=== PATIENT | male | born 1995 | race Caucasian/White ===

== ENCOUNTER 2021-12-12 23:22 | Emergency (ER) | payer SELFPAY ==
[2021-12-13] MEDS ORDERED: Ondansetron 4 MG Tab.DIS ONE (00:10)
[2021-12-13] MEDS ORDERED: Pantoprazole 40 MG Tab.CR ONE (00:10)
[2022-01-07 13:34] LABS: ESTIMATED GFR 119 mL/min (>60)
== END 2021-12-13 03:43 | disposition home or self-care (01) ==
LOC: JP.ED 23:22
DX: K92.0 Hematemesis (principal); R10.9 Unspecified abdominal pain; R45.851 Suicidal ideations; F91.1 Conduct disorder, childhood-onset type; F10.129 Alcohol abuse with intoxication, unspecified
CPT/HCPCS: 36415; 80053; 80143; 80179; 80307; 82271; 83690; 84443; 85027; 85610; 85730; 99284; A9270; Q0162

== ENCOUNTER 2022-08-21 09:52 | Emergency (ER) | payer MEDICAID ==
[2022-08-21] MEDS ORDERED: HYDROmorphone 1 MG/ML Syringe IM ONE (12:08)
[2022-08-21] MEDS ORDERED: Naloxone 0.4 MG/ML SDV IVPUSH PRN (12:08)
[2022-08-21] MEDS ORDERED: Cyclobenzaprine 10 MG Tab PO ONE (13:14)
[2022-08-21] MEDS ORDERED: Sodium Chloride 0.9% 10 ML Syringe FLUSH PRN (13:41)
[2022-08-21] MEDS ORDERED: HYDROmorphone 1 MG/ML Syringe IVPUSH ONE (14:12)
== END 2022-08-21 15:53 | disposition home or self-care (01) ==
LOC: JP.ED 09:52
DX: S32.392A Other fracture of left ilium, initial encounter for closed fracture (principal); Z91.030 Bee allergy status; Z91.018 Allergy to other foods; W23.1XXA Caught, crushed, jammed, or pinched between stationary objects, initial encounter
CPT/HCPCS: 73522; 73700; 96372; 96374; 99284; A9270; J1170

== ENCOUNTER 2022-10-19 21:53 | Emergency (ER) | payer SELFPAY ==
[2022-10-19] MEDS ORDERED: Naloxone 0.4 MG/ML SDV IVPUSH PRN (22:07)
[2022-10-19] MEDS ORDERED: HYDROmorphone 0.5 MG/0.5 ML Syringe IVPUSH ONE (22:07)
[2022-10-19] MEDS ORDERED: Sodium Chloride 0.9% 1,000 ML IV ONE (22:08)
[2022-10-19 22:17] LABS: BASOPHILS ABSOLUTE AUTO 0.06 K/uL (0.00-0.10); BASOPHILS PERCENT AUTO 0.5 % (0.1-1.3); EOSINOPHILS ABSOLUTE AUTO 0.03 K/uL (0.00-0.40); EOSINOPHILS PERCENT AUTO 0.2 % (0.0-5.4); HEMATOCRIT 41.2 % (38.4-49.7); HEMOGLOBIN 14.4 g/dL (12.9-16.9); IMMATURE GRAN ABSOLUTE AUTO 0.04 K/uL (0.00-0.23); IMMATURE GRAN PERCENT AUTO 0.3 % (0.0-0.7); LYMPHOCYTES ABSOLUTE AUTO 1.36 K/uL (0.8-3.3); MEAN CORPUSCULAR HEMOGLOBIN 31.3 pg (31.6-35.5); MEAN CORPUSCULAR VOLUME 89.6 fL (81.4-99.0); MONOCYTES ABSOLUTE AUTO 0.73 K/uL (0.20-0.90); MONOCYTES PERCENT AUTO 5.9 % (3.3-12.6); NEUTROPHILS ABSOLUTE AUTO 10.11 K/uL (1.0-7.6); NEUTROPHILS PERCENT AUTO 82.1 % (40.0-78.1); PLATELET COUNT,PLT 315 K/uL (130-375); WHITE BLOOD CELL COUNT,WBC 12.3 K/uL (3.2-11.0)
[2022-10-19 22:31] LABS: CALCIUM 8.9 mg/dL (8.5-10.1); CREATININE 1.1 mg/dL (0.8-1.3); POTASSIUM,K 3.8 mmol/L (3.6-5.2)
[2022-10-19 22:33] LABS: ANION GAP 11.8 mmol/L (5.0-14.0)
[2022-10-20] MEDS ORDERED: HYDROmorphone 0.5 MG/0.5 ML Syringe IVPUSH ONE (00:12)
== END 2022-10-20 01:30 | disposition home or self-care (01) ==
LOC: JP.ED 21:53
DX: S82.141A Displaced bicondylar fracture of right tibia, initial encounter for closed fracture (principal); Z91.030 Bee allergy status; Z91.018 Allergy to other foods; X58.XXXA Exposure to other specified factors, initial encounter
CPT/HCPCS: 36415; 73562; 80048; 85025; 96361; 96374; 96376; 99284; J1170; J7030; 99283

== ENCOUNTER 2022-10-26 08:56 | Day surgery (SDC) | payer MEDICAID ==
[2022-10-26] MEDS ORDERED: Propofol 200 MG/20 ML SDV ONE (09:00)
[2022-10-26] MEDS ORDERED: Rocuronium 50 MG/5 ML Vial ONE ×2 (09:00→12:40)
[2022-10-26] MEDS ORDERED: Dexamethasone 4 MG/ML SDV ONE (09:00)
[2022-10-26] MEDS ORDERED: Glycopyrrolate 0.2 MG/ML 5 ML MDV ONE (09:00)
[2022-10-26] MEDS ORDERED: fentaNYL 250 MCG/5 ML SDV ONE ×2 (09:00→12:40)
[2022-10-26] MEDS ORDERED: Ondansetron 4 MG/2 ML SDV ONE (09:00)
[2022-10-26] MEDS ORDERED: Neostigmine Methylsulfate 1 MG/ML 5 ML Syringe ONE (09:00)
[2022-10-26 09:29] LABS: BASOPHILS ABSOLUTE AUTO 0.06 K/uL (0.00-0.10); BASOPHILS PERCENT AUTO 0.9 % (0.1-1.3); EOSINOPHILS ABSOLUTE AUTO 0.15 K/uL (0.00-0.40); EOSINOPHILS PERCENT AUTO 2.2 % (0.0-5.4); HEMATOCRIT 39.4 % (38.4-49.7); HEMOGLOBIN 13.5 g/dL (12.9-16.9); IMMATURE GRAN PERCENT AUTO 0.1 % (0.0-0.7); LYMPHOCYTES ABSOLUTE AUTO 1.31 K/uL (0.8-3.3); LYMPHOCYTES PERCENT AUTO 19.6 % (11.4-47.7); MEAN CORPUSCULAR HEMOGLOBIN 30.7 pg (31.6-35.5); MEAN CORPUSCULAR HGB CONC 34.3 g/dL (31.6-35.5); MEAN CORPUSCULAR VOLUME 89.5 fL (81.4-99.0); MONOCYTES PERCENT AUTO 7.5 % (3.3-12.6); NEUTROPHILS ABSOLUTE AUTO 4.64 K/uL (1.0-7.6); NEUTROPHILS PERCENT AUTO 69.7 % (40.0-78.1); PLATELET COUNT,PLT 339 K/uL (130-375); WHITE BLOOD CELL COUNT,WBC 6.7 K/uL (3.2-11.0)
[2022-10-26 09:30] LABS: IMMATURE GRAN ABSOLUTE AUTO 0.01 K/uL (0.00-0.23)
[2022-10-26] MEDS ORDERED: Lactated Ringers 1,000 ML IV SCH (09:30)
[2022-10-26] MEDS ORDERED: Nozin Nasal Sanitizer NASBOTH ONE (09:30)
[2022-10-26 09:56] LABS: CALCIUM 8.7 mg/dL (8.5-10.1); CREATININE 0.9 mg/dL (0.8-1.3); EST CRCL DRUG DOSING (CG) 108.78 mL/min; POTASSIUM,K 4.1 mmol/L (3.6-5.2)
[2022-10-26 09:57] LABS: ANION GAP 8.1 mmol/L (5.0-14.0)
[2022-10-26] MEDS ORDERED: ceFAZolin 1 GM in Premix Bag 1 BAG IV ONE (10:00)
[2022-10-26] MEDS ORDERED: Bupivacaine 0.5% 30 ML SDV ONE (10:37)
[2022-10-26] MEDS ORDERED: Lactated Ringers 1,000 ML ONE (12:41)
[2022-10-26] MEDS ORDERED: fentaNYL 100 MCG/2 ML SDV ONE (13:59)
[2022-10-26] MEDS ORDERED: Acetaminophen/oxyCODONE 325-5 MG Tab PO ONE (15:00)
== END 2022-10-26 16:47 | disposition home or self-care (01) ==
LOC: JP.SDS 08:56
PROVIDERS: ATTEND Specialist
DX: S83.411A Sprain of medial collateral ligament of right knee, initial encounter (principal); S83.521A Sprain of posterior cruciate ligament of right knee, initial encounter; S82.111A Displaced fracture of right tibial spine, initial encounter for closed fracture; F17.290 Nicotine dependence, other tobacco product, uncomplicated; E78.00 Pure hypercholesterolemia, unspecified; Z88.5 Allergy status to narcotic agent; Z91.030 Bee allergy status; Z79.899 Other long term (current) drug therapy; X58.XXXA Exposure to other specified factors, initial encounter
CPT/HCPCS: 29889; 36415; 80048; 85025; A9270; C1713; J0690; J1100; J2405; J2704; J2710; J3010; J3490; J7120